=== PATIENT | male | born 1955 | race Caucasian/White ===

== ENCOUNTER → 2017-06-12 | Day surgery (SDC) | payer OTHER ==
[~2017-06-12] MED LIST: ALPR1TAB3 PO; ANXIETY MEDICATION; ASPI325T; ATOR20TA42; FENO50TA PO; FUROSEMIDE 20 MG/2 ML VIAL ONE; GENTAMICIN SULFATE 80 MG/2 ML VIAL ONE; KETOROLAC TROMETHAMINE 30 MG/ML (IVP) VIAL IV PUSH ONE; LACTATED RINGER'S 1000 ML INJ 1,000 ML ONE; LEVA500T33 PO; MEDR4PAK3 PO; MIDAZOLAM HCL 2 MG/2 ML VIAL ONE; ONDANSETRON HCL 4 MG/2 ML VIAL IV PUSH ONE; PROPOFOL 200 MG/20 ML AMP IV ONE; VALA500 PO; [UNRECOGNIZED DRUG - CODE] OR
--- NOTE | 2017-06-12 08:44 | TN ---
cc: SABINE RCOK M.D. DATE OF SURGERY 06/12/2017 PREOPERATIVE DIAGNOSIS Right ureteral vesicle junction calculus (4 mm)(ICD-10 code N20.1). POSTOPERATIVE DIAGNOSIS No stone identified within the ureter. PROCEDURE Cystourethroscopy with right ureteroscopy (CPT code 89960) INDICATIONS Mr. Casanova is a 61-year-old gentleman who five days ago had severe acute right flank pain and went the emergency room and a CT showed a 4 mm right ureterovesical junction calculus. The patient continued to be symptomatic and requested ureteroscopic stone basket manipulation laser lithotripsy as opposed to a trial of medical expulsive therapy and presents now for definitive treatment. FINDINGS Normal urethra with some bilateral hyperplasia with mild obstruction. The ureteral orifice was normal size, shape and position effluxing clear urine bilaterally. Minimal trabeculation. No diverticula cellules. There was no evidence of any calculi within the bladder. The ureteroscopy showed no stone identified within the entire length of the ureter. Upon removing the ureteroscope, however, there were two small fragments of stone, but not enough to comprise a 4 mm stone. PROCEDURE The procedure, as well as risks and benefits were explained to the patient. Informed consent was obtained and the patient was taken to the major operative theater where he was placed in the supine position. The patient was identified as well as the operative site. A universal time-out was performed in standard fashion. At this time, general anesthetic and prophylactic intravenous antibiotics consisting of gentamicin 80 mg. After adequate anesthetic, the patient was placed in low dorsolithotomy position, prepped and draped in the usual sterile fashion. At this time, a 22.5 Maori cystoscope with a 30 degree lens was inserted into the urethra and bladder with the above findings. Attention was directed to the right ureteral orifice where a 0.035 inches hybrid guidewire was placed under fluoroscopic guidance up the ureter into the renal pelvis. The cystoscope was removed leaving the safety wire in place attached to the drapes. A second wire was then placed after replacing the cystoscope. This was a 0.035 inches Ferraro guidewire and it was also placed without difficulty into the renal pelvis. At this time, the cystoscope was removed and a semi-rigid mini ureteroscope was passed over the working wire up the ureter all the way to approximately the ureteropelvic junction. No stone was identified. The scope was then slowly removed and again evaluation was performed meticulously and no obvious evidence of a stone. At this time just upon removing the ureteroscope, however, there was some small tiny fragments of stone debris. At this time, the cystoscope was placed back into the bladder. Attention was directed to the ureteral orifice. There was some mild hematuria. The safety wire was removed and there appeared to be a good efflux of mildly bloody urine, but no evidence of concern that will require placing a stent. The small tiny little fragments were then identified as stone fragments, but they were even to small to capture. The bladder was then decompressed, the cystoscope removed. The patient tolerated the procedure well and emerged from anesthetic without difficulty and transferred to the recovery in stable condition to be discharged home when criteria is met. There are no obvious complications. MD PREETHI Escobar/ESTHER /8:16 AM /8:28 AM JONEL
== END | disposition home or self-care (01) ==
LOC: ESDC 06:05
PROVIDERS: ATTEND Urology
DX: N20.1 Calculus of ureter (principal)
CPT/HCPCS: 00910; 52351; 76000; C1769; J1580; J1885; J2250; J2405; J3010; J7120; J1940